=== PATIENT | female | born 1975 | race African-American/Black ===

== ENCOUNTER 2018-08-19 23:22 | Emergency (ER) | payer BC ==
[~2018-08-19] VITALS: Ht 165.1 cm; Wt 86.2 kg
--- NOTE | 2018-08-19 23:35 | NUR ---
PT BIBSELF C/O DIFFICULTY BREATHING AND CHEST TIGHTNESS X1 DAY. HX ASTHMA. PT ALSO C/O NONPRODUCTIVE COUGH. PT AAOX4. RESPIRATIONS EVEN AND UNLABORED. SKIN WARM AND INTACT. NO ACUTE DISTRESS NOTED. PT PLACED ON MONITOR, WILL CONTINUE TO MONITOR
[2018-08-19] MEDS ORDERED: IPRATROPIUM NEB FS 0.5 MG/2.5 ML AMPUL.NEB ONE (23:54)
[2018-08-19] MEDS ORDERED: ALBUTEROL FS 2.5 MG/3 ML VIAL.NEB ONE (23:54)
[2018-08-20] MEDS ORDERED: predniSONE 20 MG TABLET PO ONE
[2018-08-20] MEDS ORDERED: predniSONE 20 MG TABLET ONE (00:12)
[2018-08-20] MEDS ORDERED: IPRATROPIUM NEB FS 0.5 MG/2.5 ML AMPUL.NEB NEB ONE ×2 (01:00)
[2018-08-20] MEDS ORDERED: ALBUTEROL FS 2.5 MG/3 ML VIAL.NEB CONTNEB ONE ×2 (01:00)
[2018-08-20 01:17] VITALS: BP 148/89
== END 2018-08-20 01:18 | disposition home or self-care (01) ==
LOC: ER 23:26
DX: J45.901 Unspecified asthma with (acute) exacerbation (principal); I10 Essential (primary) hypertension